=== PATIENT | female | born 1990 | race Caucasian/White ===

== ENCOUNTER → 2016-09-12 | Outpatient (CLI) | payer BC, OTHER ==
[~2016-09-12] MED LIST: PRENTAB26 PO
[2016-09-12 16:00] LABS: URINE APPEARANCE CLEAR (CLEAR); URINE BILIRUBIN NEG (NEG); URINE COLOR YELLOW; URINE NITRITE NEG (NEG); URINE PH 5.5 (4.5-7.5); URINE SPECIFIC GRAVITY 1.022 (1.000-1.030); UROBILINOGEN NEG (NEG)
[2016-09-12 16:02] LABS: MANUAL MICROSCOPIC REQUIRED? NO; REVIEW REQ? NO
== END | disposition home or self-care (01) ==
LOC: C.LABSPEC 17:34
PROVIDERS: ATTEND Obstetrics & Gynecology
DX: Z34.90 Encounter for supervision of normal pregnancy, unspecified, unspecified trimester (principal)

== ENCOUNTER → 2016-09-15 | Outpatient (CLI) | payer OTHER | END | disposition home or self-care (01) | LOC: C.PAPS 16:12 | PROVIDERS: ATTEND Obstetrics & Gynecology | DX: Z12.4 Encounter for screening for malignant neoplasm of cervix (principal) ==

== ENCOUNTER → 2016-09-15 | Outpatient (CLI) | payer OTHER ==
[2016-09-15 16:41] LABS: BASO % 0.3 %; BASO ABS # 0.03 K/uL (0-0.2); COMPLETE YES; EOS % 1.1 %; HEMATOCRIT 39.9 % (37-47); IG% 0.2 %; LYMPH % 23.8 %; LYMPH ABS # 2.69 K/uL (1.2-3.4); MEAN CELL VOLUME 91.1 fL (80-100); MEAN CORPUSCULAR HEMOGLOBIN 31.3 pg (25-34); MEAN CORPUSCULAR HGB CONC 34.3 g/dl (32-36); MEAN PLATELET VOLUME 10.2 fL (7.4-10.4); MONO % 7.4 %; NEUT % 67.2 %; PLATELET COUNT 277 K/uL (130-400); RED BLOOD COUNT 4.38 M/uL (4.2-5.4); WHITE BLOOD COUNT 11.28 K/uL (4.8-10.8)
[2016-09-18 03:20] LABS: CHLAMYDIA TRACH RNA*** NOT DETECTED (NOT DETECTED); GC (NEIS GONORRHOEAE)RNA** NOT DETECTED (NOT DETECTED)
== END | disposition home or self-care (01) ==
LOC: C.LAB1850 15:17
PROVIDERS: ATTEND Obstetrics & Gynecology
DX: Z34.90 Encounter for supervision of normal pregnancy, unspecified, unspecified trimester (principal)

== ENCOUNTER → 2017-01-29 | Outpatient (CLI) | payer OTHER ==
[2017-01-29 16:43] LABS: HEMATOCRIT 38.4 % (37-47)
[2017-01-29 18:58] LABS: URINE APPEARANCE CLEAR (CLEAR); URINE BILIRUBIN NEG (NEG); URINE COLOR YELLOW; URINE NITRITE NEG (NEG); URINE PH 6.5 (4.5-7.5); URINE SPECIFIC GRAVITY 1.014 (1.000-1.030); UROBILINOGEN NEG (NEG)
[2017-01-29 19:03] LABS: MANUAL MICROSCOPIC REQUIRED? NO; REVIEW REQ? NO
== END | disposition home or self-care (01) ==
LOC: C.LAB1850 15:27
PROVIDERS: ATTEND Obstetrics & Gynecology
DX: Z34.83 Encounter for supervision of other normal pregnancy, third trimester (principal)

== ENCOUNTER → 2017-04-03 | Outpatient (CLI) | payer BC | END | disposition home or self-care (01) | LOC: C.LABSPEC 15:42 | PROVIDERS: ATTEND Obstetrics & Gynecology | DX: O24.410 Gestational diabetes mellitus in pregnancy, diet controlled (principal); Z3A.00 Weeks of gestation of pregnancy not specified ==

== ENCOUNTER 2017-04-17 23:15 | Inpatient (IN) | payer BC ==
[~2017-04-17] VITALS: Ht 154.9 cm; Wt 73.5 kg
[2017-04-18] MEDS ORDERED: LACTATED RINGER'S 1000ML 1,000 ML IV PRN (00:14)
[2017-04-18] MEDS ORDERED: LACTATED RINGER'S 1000ML 1,000 ML IV SCH (00:14)
[2017-04-18 00:34] VITALS: Ht 154.9 cm; Wt 73.5 kg
[2017-04-18] MEDS ORDERED: ESOM20CA PO (00:40)
[2017-04-18 00:48] LABS: HEMATOCRIT 37.9 % (37-47); MEAN CELL VOLUME 89.6 fL (80-100); MEAN CORPUSCULAR HEMOGLOBIN 30.7 pg (25-34); MEAN CORPUSCULAR HGB CONC 34.3 g/dl (32-36); MEAN PLATELET VOLUME 10.3 fL (7.4-10.4); PLATELET COUNT 344 K/uL (130-400); RED BLOOD COUNT 4.23 M/uL (4.2-5.4); WHITE BLOOD COUNT 12.73 K/uL (4.8-10.8)
[2017-04-18] MEDS ORDERED: LACTATED RINGER'S 1000ML 500 ML IV PRN ×2 (04:10→08:51)
[2017-04-18] MEDS ORDERED: OXYTOCIN 30 UNITS/500ML NSS IV PRN ×2 (04:15→12:15)
[2017-04-18] MEDS ORDERED: BUPIVACAINE 0.25% 30 ML VIAL ONE (08:07)
[2017-04-18] MEDS ORDERED: EpHEDrine SULFATE INJ 50 MG/ML AMP ONE (08:07)
[2017-04-18] MEDS ORDERED: FENTANYL 2MCG/ML ROPIV 1.25MG/ML 100ML BAG EPI ONE (08:07)
[2017-04-18] MEDS ORDERED: FENTANYL CITRATE INJ 50 MCG/1 ML 2 ML VIAL ONE (08:08)
[2017-04-18] MEDS ORDERED: NALOXONE HCL INJ 1 MG in SODIUM CHLORIDE 0.9% 1000ML 1,000 ML IV PRN ×4 (08:51)
[2017-04-18] MEDS ORDERED: FENTANYL 2MCG/ML ROPIV 1.25MG/ML 100ML BAG EPI PRN (09:00)
[2017-04-18] MEDS ORDERED: PROMETHAZINE HCL INJ 25 MG in SODIUM CHLORIDE 0.9% 50ML 50 ML IV PRN (09:00)
[2017-04-18] MEDS ORDERED: DiphenhydrAMINE HCL 50 MG/ML VIAL IV PRN (09:00)
[2017-04-18] MEDS ORDERED: NALOXONE HCL INJ 0.4 MG/1 ML VIAL/CARP IV PRN (09:00)
[2017-04-18] MEDS ORDERED: NALBUPHINE HCL INJ 10 MG/ML AMP IV PRN (09:00)
[2017-04-18] MEDS ORDERED: EpHEDrine SULFATE INJ 50 MG/ML AMP IV PRN (09:00)
[2017-04-18] MEDS ORDERED: ONDANSETRON INJ 2 MG/ML 2 ML VIAL IV PRN (09:00)
[2017-04-18] MEDS ORDERED: DIPHTHERIA/TETANUS/PERTUSSIS 0.5 ML SYR/VIAL IM. ONE (12:15)
[2017-04-18] MEDS ORDERED: BENZOCAINE 20% AER SPR 82.5 GM CAN EXT PRN (12:15)
[2017-04-18] MEDS ORDERED: HYDROCORTISONE ACETATE 25 MG SUPP PR PRN (12:15)
[2017-04-18] MEDS ORDERED: SUPERCREAM 0.870 % 15GM JAR EXT PRN (12:15)
[2017-04-18] MEDS ORDERED: ACETAMINOPHEN/CODEINE 300/30MG TAB PO PRN ×2 (12:15)
[2017-04-18] MEDS ORDERED: LANOLIN OINT EXT PRN ×2 (12:15)
[2017-04-18] MEDS ORDERED: OXYCODONE/ACETAMINOPHEN 5-325 TAB PO PRN (12:15)
--- NOTE | 2017-04-18 12:39 | DELIVERY SUMMARY ---
DATE OF OPERATION: 04/18/2017 VAGINAL DELIVERY NOTE Beata presented in labor with ruptured membranes for Dr. Mckinney on the evening of April 17. At that time, she was on Pitocin and epidural. She rapidly progressed, fully dilated and pushed out a baby in left occiput anterior position. There was a tight nuchal cord. The fluid was clear. The cord was clamped and cut after delivery of the head on the perineum. Mouth and the nares were suctioned. The baby delivered with gentle traction. No excessive force. The baby initially required some resuscitation in the first one minute, but then quickly improved. There was no tearing. Estimated blood loss 100 mL. Placenta was removed with gentle traction. Uterus contracted and IV Pitocin started. Sponge and instrument counts correct. I attest to the content of the Intraoperative Record and any orders documented therein. Any exceptions are noted below. MTDD
--- NOTE | 2017-04-18 13:14 | Anesthesia Procedure Note ---
Anesthesia Epidural Removal Nt Date & Time Apr 18, 2017 at 13:13 Vital Signs Pain Intensity: 0.0 Notes Mental Status: alert / awake / arousable, participated in evaluation Nausea / Vomiting: adequately controlled Pain: adequately controlled Airway Patency, RR, SpO2: stable & adequate BP & HR: stable & adequate Hydration State: stable & adequate Neuraxial Anesthesia: was administered Anesthetic Complications: no major complications apparent, pt satisfied with anesthetic care Epidural: removed without complications, with tip intact
[2017-04-18 15:45] VITALS: BP 114/64; PULSE 89; TEMP 37.2
[2017-04-18] MEDS: IBUPROFEN 600 MG TAB PO PRN (17:16)
[2017-04-18] MEDS: DOCUSATE SODIUM 100 MG CAP PO SCH (20:04)
[2017-04-18] MEDS: ACETAMINOPHEN 325 MG TAB PO PRN (20:16)
[2017-04-18 20:25] VITALS: BP 106/68; PULSE 75; TEMP 36.6; O2SAT 99
[2017-04-19] MEDS: IBUPROFEN 600 MG TAB PO PRN ×3 (00:47→16:15)
[2017-04-19 00:50] VITALS: BP 104/64; PULSE 76; TEMP 36.4; O2SAT 98
[2017-04-19 04:15] VITALS: BP 100/65; PULSE 74; TEMP 36.8; O2SAT 99
[2017-04-19] MEDS: ACETAMINOPHEN 325 MG TAB PO PRN (04:25)
--- NOTE | 2017-04-19 06:36 | Progress Note ---
Subjective Apr 19, 2017. Subjective conversation w/ patient, physical exam, lab review Ambulation: ambulating normally Voiding: no voiding problems Passing Gas: Yes Diet Tolerance: Regular Diet Lochia: Moderate Feeding Type: Breast Feeding Objective Vital Signs Date Time Temp Pulse Resp B/P (MAP) Pulse Ox O2 Delivery O2 Flow Rate FiO2 04/19/17 04:15 36.8 74 20 100/65 (77) 99 Room Air 04/19/17 00:50 36.4 76 16 104/64 (77) 98 Room Air 04/19/17 00:50 98 Room Air 04/18/17 20:25 36.6 75 18 106/68 (81) 99 Room Air 04/18/17 15:45 37.2 89 20 114/64 (81) Room Air 04/18/17 15:45 Room Air Physical Exam General Appearance: WELL-APPEARING Respiratory/Chest: lungs clear Abdomen: non tender Fundus: Firm Extremities: non-tender, no calf tenderness Laboratory Results Last 24 Hours Test 04/19/17 06:27 Assessment and Plan Post- Day#: 1 Continue Routine Care: home
--- NOTE | 2017-04-19 06:37 | Discharge Instructions ---
Discharge Instructions Date of Service Apr 19, 2017. Admission Reason for Admission: LABOR Discharge Discharge Diagnosis / Problem: Discharge Goals Goal(s): Routine recovery after delivery Activity Recommendations Activity Limitations: per Instructions/Follow-up section . Instructions / Follow-Up Instructions / Follow-Up ACTIVITY RECOMMENDATIONS: * Gradual return to full activity over the next 2-3 weeks. * No lifting - nothing heavier than baby over the next 2-3 weeks. * Do not engage in vigorous exercise, sexual activity or sports until cleared by your physician. * Do not drive or operate any motorized equipment until cleared by your physician. * You may shower/bathe daily. MEDICATIONS: For discomfort or pain, you may use Acetaminophen (Tylenol), Ibuprofen (Advil), or Naproxen (Aleve) following the package directions. For constipation you may use Colace following the package directions. BREAST CARE: If you are not breast feeding: * Wear a supportive bra 24 hours a day for one to two weeks. * Avoid stimulating your breasts and nipples as much as possible during the first few weeks after delivery. * When taking a shower, have the warm water hit your back, not breasts. * When your breasts feel full, apply ice packs. Usually three to four times a day helps ease the discomfort. * Take a mild pain medication (Tylenol / Motrin) when you are uncomfortable. If breast feeding: * Use breast milk to lubricate nipples. Lansinoh cream may be used for sore nipples. You do not need to remove cream prior to breast feeding. If using a different brand of cream, check the label for directions regarding removal of cream prior to nursing. * Wear a supportive bra. * If having problems with breasts or breast feeding, call a sap treasury consultant or your health care provider. EPISIOTOMY CARE: After delivery, if you have an episiotomy (stitches), the following steps will ease discomfort and aid healing. * For the first 24 hours after delivery, place ice packs next to your episiotomy to help reduce swelling. * After the first 24 hour-period, sitz baths, either portable or in the tub, are suggested. A shower with a shower arm sprayed over the episiotomy may be comforting. * Monika care should be done after each voiding and bowel movement. Squirt warm water from a plastic bottle over the perineum (region of the body between the anus and urinary opening) and pat dry. * Use Dermoplast to ease discomfort. Shake container. Orchard directly over the episiotomy. Place a Tucks on a clean sanitary pad next to your episiotomy. SPECIAL CARE INSTRUCTIONS: When you are discharged from the hospital, it is important for you to follow the instructions listed below: * During the first week at home, you should be able to care for yourself and your baby. In addition, the usual light household activities are encouraged. * Limit your activities to the way you feel. Do not try to clean the house or move furniture. Be sensible. * If you actively engage in sports and have done so up until the time of your delivery, you may resume these activities as soon as you feel able. This may take up to one month or even longer. Use good judgment. * Continue to take your vitamins for at least six weeks after the of your baby. * Your diet need not be limited unless you were on a special diet before your delivery. Breast-feeding mothers need around 2500 calories per day and at least 64-80 ounces of fluid per day (8 to 10 glasses). * You should eat foods from the four major food groups. Crash diets or fad diets are to be avoided. Eating lean meats, fresh fruits and vegetables, low-fat dairy products, high fiber foods and a regular exercise program, will help you get back to your pre- weight without putting your health at risk. * Constipation is sometimes a problem after delivery. Take a mild laxative as needed. If breast feeding, Milk of Magnesia is acceptable to use. You may use a suppository or Fleets enema if no episiotomy. * A daily shower or tub bath is suggested. Be sure to thoroughly and gently dry the perineum. * A bloody vaginal discharge will usually continue until around four weeks post . A small amount of bleeding may continue for as long as six weeks. Vaginal discharge changes from the bright red bleeding after delivery to pink then brownish and finally yellowish-pink before becoming white and disappearing. * Bleeding may increase with activity. Your first period may come in 4-8 weeks. If you are breast feeding, your period may be delayed even longer. * [place] (sex) can begin whenever both you and your partner feel comfortable and do not have any form of genital infection. It is recommended that you wait at least six weeks for internal and external healing to occur. If you have questions, please talk to your health care practitioner. A condom should be used to prevent infection and . * Foreplay, gentle intercourse and lubrication is very important the first several times to prevent pain. A water-based lubricant such as K-Y jelly or Astroglide may be used. * If you have RH negative blood and your baby is RH positive, you will receive RHOGAM by injection prior to discharge. The nurse will give you a card to keep with you that has the date and place that you received RHOGAM after delivery. * During your care, you had a Rubella screen done to check for the presence of rubella antibodies in your blood. If your test was negative, you will receive a Rubella vaccine prior to discharge. This vaccine may cause a fever, soreness at the injection site and flu-like symptoms. If these symptoms persist, notify your health care practitioner. is not advised for one month after a Rubella vaccine. * Verbalizes understanding of car seat law as reviewed with patient nursing. * Car Seat hand-out given and reviewed with patient by nursing. * Shaken baby information reviewed with patient by nursing. Call you doctor if: * Heavy bleeding (saturating several pads an hour) or passing clots the size of your fist. * A fever >101 degrees F (38.3 degrees C) on two occasions four hours apart and /or chills. * Unusual pain in the pelvic or vaginal areas. * "Baby Blues" lasting longer than two weeks. If you have any questions or concerns, call your health care practitioner at . FOLLOW UP VISIT: * Please call the office at to schedule a 6 week examination. It is important you keep this appointment. It is important for you to make arrangements for either yearly or twice yearly check-ups thereafter. Current Hospital Diet Patient's current hospital diet: Regular OB Diet Discharge Diet Recommended Diet: Regular OB Diet Pending Studies Studies pending at discharge: no Medical Emergencies . Who to Call and When: Medical Emergencies: If at any time you feel your situation is an emergency, please call 911 immediately. . Non-Emergent Contact Non-Emergency issues call your: Digital Media Sales Consultant . . "Provider Documentation" section prepared by Lj Calderon. . VTE Core Measure Inpt VTE Proph given/why not?: Treatment not indicated
[2017-04-19 06:52] LABS: HEMATOCRIT 36.5 % (37-47)
[2017-04-19 08:00] VITALS: BP 110/77; PULSE 89; TEMP 36.7; O2SAT 99
[2017-04-19] MEDS ORDERED: PRENATAL VITAMIN TAB PO SCH (08:00)
[2017-04-19] MEDS: DOCUSATE SODIUM 100 MG CAP PO SCH (08:20)
[2017-04-19 16:50] VITALS: BP 127/73; PULSE 89; TEMP 36.6; O2SAT 98
[2017-04-19 17:30] VITALS: BP_DIAS 73; PULSE 89; TEMP 36.6
[2017-04-19] MEDS ORDERED: BISACODYL 5 MG TABEC PO SCH (20:00)
[2017-04-20] MEDS ORDERED: BISACODYL 10 MG SUPP PR PRN (07:00)
== END 2017-04-19 18:05 | disposition home or self-care (01) | DRG 775 ==
LOC: C.OPB 23:15 → C.LD 23:15 → C.OPB 04-18 00:15 → C.LD 04-18 00:15 → C.OBG 04-18 15:56
PROVIDERS: ADMIT Obstetrics & Gynecology; ATTEND Obstetrics & Gynecology
PROC: 10E0XZZ Delivery of Products of Conception, External Approach (ICD-10-PCS; principal; 2017-04-18)
DX: O24.420 Gestational diabetes mellitus in childbirth, diet controlled (principal); O69.1XX0 Labor and delivery complicated by cord around neck, with compression, not applicable or unspecified; Z37.0 Single live birth; Z3A.40 40 weeks gestation of pregnancy

== ENCOUNTER 2020-01-09 06:32 | Inpatient (IN) ==
[~2020-01-09 06:32] MED LIST changes: +CEFAZOLIN 2,000 MG in SYRINGE 0 ML IV SCH; +CITRIC ACID/SODIUM CITRATE 15 ML UDC PO SCH; +LACTATED RINGER'S 1,000 ML IV SCH; -PRENTAB26 PO
[2020-01-09] MEDS ORDERED: OXYTOCIN 30 UNITS/500 ML BAG IV PRN ×3 (07:55→21:44)
[2020-01-09 08:12] LABS: Hemoglobin 13.4 g/dL (12.0-16.0); White Blood Count 15.24 K/uL (4.8-10.8)
[2020-01-09 08:13] LABS: Hematocrit (blood only) 41.7 % (37-47); Mean Corpuscular Hemoglobin 30.5 pg (25-34); Mean Corpuscular Volume 94.8 fL (80-100); Mean Platelet Volume 10.7 fL (7.4-10.4); Platelet Count 369 K/uL (130-400); RDW Coefficient of Variation 13.3 % (11.5-14.5); RDW Standard Deviation 45.8 fL (36.4-46.3)
[2020-01-09 08:18] LABS: Mean Corpuscular Hgb Conc 32.1 g/dL (32-36)
[2020-01-09] MEDS: LACTATED RINGER'S 1,000 ML IV PRN ×2 (08:33→17:37)
--- NOTE | 2020-01-09 11:45 | History & Physical Report ---
Date of Service January 09, 2020 History of Present Illness Primary Care Provider: Meka Fleming MD Beata is a 29 y/o female ; dating parameters LMP 04/08/19; Came in for c- section due to breech presentation, which converted to vertex and was thus switched to induction; no complications during this . no contractions; good movement; no fluid loss; no vaginal blood loss Labs: (01/09/20) Blood type: O positive Antibody screen: Negative H.4 Hct: 41.7 WBC: 15.24 Plt: 369 Rubella: Immune VDRL/RPR: Neg Gonorrhea: Neg Chlamydia: Neg HIV: Neg HbSAg: Neg GBS Neg Allergies Allergy/AdvReac Type Severity Reaction Status Date / Time Penicillins Allergy Intermediate HIVES Verified 01/09/20 11:05 Home Medications Home Medications Medication Instructions Recorded Confirmed Type prenat.vits,mary,hph-kvis-gizku 1 tab PO DAILY 06/09/19 01/09/20 History esomeprazole magnesium [Nexium 20 mg PO QAM 01/04/20 01/09/20 History 24HR] Patient History Family History (Updated 08/04/19 @ 14:04 by Meka Fleming MD) Mother Migraine Sister Migraine Father Hypertension Depression Daughter No problems noted. Son No problems noted. Denies family history of Colon cancer Ovarian cancer Prostate cancer Myocardial infarction Breast cancer Social History Preferred Language: Kyrgyz Communication Ability: Effective Visual Impairment: No Limitations Hearing Ability: Normal Spot Sprayer Required: No Beliefs That Will Affect Care: None marital status: marital status details: Andrés (31) [phone] Current Living Situation: Spouse and Family current occupational status: employed current occupation: Dental pediatric medical assistant Other Information That Helps Us Care for You: No Feels Safe at Home: Yes Safety Concerns: Feels Safe At This Time Smoking Status: Never smoker Do You Dip or Chew Tobacco: No ; Second Hand Exposure: No ; Tobacco Cessation Education Requested by Patient: No Hx Alcohol Use: No Hx Substance Use: No Dental Care, Regularly: Yes Physical Activity Frequency: 3-4 Times per Week Review of Systems Constitutional: denies fever, chills, sweat, headache Respiratory: denies shortness of breath, difficulty breathing Cardiac: denies chest pain, palpitations, chest pressure Breast: denies breast pain : denies dysuria Physical Exam Respiratory: normal respiratory effort, lungs clear to auscultation Cardiovascular: RRR, no murmur, no edema Genitourinary: OB Exam Abdomen: + fundal height, + vertex and + estimated weight OB Exam Monitor Tracing: + external FHT monitor used, + external uterine monitor used, + category I and + normal FHT variability Results & Data Vital Signs (Past 12 Hours) Vital Signs Temp Pulse Resp BP 01/09/20 10:46 36.7 C 79 18 112/65 01/09/20 09:43 91 H 110/62 01/09/20 08:54 88 16 112/69 01/09/20 07:08 37.1 C 16 01/09/20 06:49 36.8 C 91 H 18 120/72
[2020-01-09] MEDS ORDERED: ePHEDrine sulfate 50 MG/ML AMP ONE (12:25)
[2020-01-09] MEDS ORDERED: fentaNYL citrate 100 MCG/2 ML VIAL ONE ×2 (12:25→21:14)
[2020-01-09] MEDS ORDERED: fentaNYL 2MCG/ML ROPIV 1.25MG/ML 100 ML BAG EPI ONE (12:25)
[2020-01-09] MEDS ORDERED: BUPIVACAINE 0.25% 30 ML VIAL ONE ×2 (12:25→21:14)
[2020-01-09] MEDS ORDERED: ONDANSETRON INJ 2 MG/ML 2 ML VIAL IV PRN (13:09)
[2020-01-09] MEDS ORDERED: DiphenhydrAMINE HCL 50 MG/ML VIAL IV PRN (13:09)
[2020-01-09] MEDS ORDERED: NALOXONE HCL 1 MG in SODIUM CHLORIDE 0.9% 1000ML 1,000 ML IV PRN (13:09)
[2020-01-09] MEDS ORDERED: ePHEDrine sulfate 50 MG/ML AMP IV PRN (13:09)
[2020-01-09] MEDS ORDERED: fentaNYL 2MCG/ML ROPIV 1.25MG/ML 100 ML BAG EPI PRN (13:09)
[2020-01-09] MEDS ORDERED: NALOXONE HCL 0.4 MG/1 ML VIAL/CARP IV PRN (13:09)
--- NOTE | 2020-01-09 13:15 | Anesthesiology Consultation ---
Date of Service January 09, 2020 Assessment & Plan Chart Review Chart Review: Patient NOT seen in Pre Admission Testing and Acceptable Risk for Labor Epidural Consults Requested none ASA ASA2 Proposed Anesthesia Anesthesia Type: Labor Epidural and CSE Risk / Benefits Reviewed With: PT / POA / Parent / Guardian, Accepts Plan and Informed Consent Obtained History Surgery Operation Date: 01/09/20 08:50 Proposed Procedures p Section in LD with - Brooke Nuno MD s Bilateral Tubal Ligation Labor & Delivery - Brooke Nuno MD Height/Weight Height: 5 ft 1 in Weight: 70.76 kg Allergies Allergy/AdvReac Type Severity Reaction Status Date / Time Penicillins Allergy Intermediate HIVES Verified 01/09/20 11:05 Medications Home Medications Medication Instructions Recorded Confirmed Last Taken prenat.vits,mary,ble-vsxz-apeel 1 tab PO DAILY 06/09/19 01/09/20 01/08/20 esomeprazole magnesium [Nexium 20 mg PO QAM 01/04/20 01/09/20 01/08/20 24HR] Active Medications Generic Name Dose Route Start Last Admin Trade Name Freq PRN Reason Stop Dose Admin Lactated Ringer's 1,000 mls @ 125 mls/hr 01/09/20 07:55 01/09/20 12:20 Lr IV 01/11/20 07:54 999 mls/hr .Q8H PRN Infusion L&D Protocol Protocol Oxytocin 30 units in 500 mls @ 9 mls/hr 01/09/20 07:59 01/09/20 12:20 Pitocin IV 01/11/20 07:58 0.54 units/hr .Q24H PRN 9 mls/hr Labor Induction/Augmentation Titration Protocol 0.54 UNITS/HR NPO Date Last Intake of Fluids: 01/09/20 Time Last Intake of Fluids: 11:30 Date Last Intake of Solids: 01/09/20 Time Last Intake of Solids: 11:30 Past Medical History Medical History Chiari I malformation GERD (gastroesophageal reflux disease) Gestational diabetes mellitus (GDM) affecting Migraine Transverse lie of fetus Exercise / Class Metabolic Activity II 4-5 Yardwork/Stairs/Walk up hill Past Family History Family History Mother Migraine Sister Migraine Father Hypertension Depression Daughter No problems noted. Son No problems noted. Denies family history of Colon cancer Ovarian cancer Prostate cancer Myocardial infarction Breast cancer Past Surgical History Surgical History Family history of reaction to anesthesia MOTHER-N/V History of dilatation and curettage Nausea and vomiting after administration of anesthetic agent [place] teeth removed Past Anesthesia History No Hx of Anesthesia Complications and No Family Hx of Anesthesia Complications History of PONV No Hx of PONV and No Hx of Motion Sickness Social History Smoking Status: Never smoker Do You Dip or Chew Tobacco: No Hx Alcohol Use: No Hx Substance Use: No substance use type: does not use Review of Systems no chest pain or sob Physical Exam Vital Signs Last Vital Signs Temp 36.7 C 01/09/20 10:46 Pulse 99 H 01/09/20 13:12 Resp 18 01/09/20 10:46 BP 129/76 01/09/20 13:12 Pulse Ox 100 01/09/20 13:11 ENMT Mouth: no TMJ abnormality Thyromental Distance: > or= 3.5 Finger Breadths Mallampati Class: II Neck normal visual inspection Respiratory normal respiratory effort Auscultation: lungs clear to auscultation bilaterally Cardiovascular Rate/Rhythm: regular rate and regular rhythm Musculoskeletal Spine: normal cervical ROM Neurologic moves all extremities Psychiatric Orientation: alert and oriented x 3 Testing Laboratory Results 01/09/20 08:00 Blood Type O Positive 01/09/20 08:00 Antibody Screen NEGATIVE 01/09/20 08:00
--- NOTE | 2020-01-09 18:29 | Labor Progress Brief Note ---
Date of Service January 09, 2020 Subjective Delayed note entry due to care of other patient. This patient examined earlier and was comfortable with epidural. Assessment & Plan (1) Encounter for supervision of normal in multigravida, antepartum: Unstable lie of fetus at 39 weeks - planned for CS today but vertex on presentation to L&D so converted to IOL. Pitocin all morning, head well applied so AROM done now, copious fluid drained and decel noted. recovery occurred and can go back up on pitocin. Admission and Anticipated Discharge Date Admission Date: January 09, 2020 Physical Exam Physical Exam: AROM copious clear fluid. /-2 FHT Cat 1 prior to AROM, but with decel noted after fluid drained. Pit turned from 15 to off, patient repositioned, FHT recovered. Results & Data ([facility]) Vital Signs (Past 12 Hours) Vital Signs Temp Pulse Resp BP Pulse Ox 01/09/20 18:22 80 99 01/09/20 18:21 84 89 L 01/09/20 18:17 67 100 01/09/20 18:12 85 99 01/09/20 18:07 64 100 01/09/20 18:06 75 107/62 01/09/20 18:02 66 98 01/09/20 18:00 16 01/09/20 17:57 79 99 01/09/20 17:52 66 99 01/09/20 17:50 72 115/60 01/09/20 17:47 68 99 01/09/20 17:42 84 99 01/09/20 17:37 94 H 95 01/09/20 17:32 70 99 01/09/20 17:28 79 93 01/09/20 17:27 73 95 01/09/20 17:22 80 98 01/09/20 17:20 71 101/59 L 01/09/20 17:17 76 98 01/09/20 17:12 75 98 01/09/20 17:07 81 98 01/09/20 17:06 77 111/70 01/09/20 17:02 79 98 01/09/20 17:00 97.9 F 16 01/09/20 16:57 82 115/64 100 01/09/20 16:52 78 99 01/09/20 16:47 81 98 01/09/20 16:42 94 H 98 01/09/20 16:37 86 97 07/13/20 16:32 87 98 01/09/20 16:27 93 H 98 01/09/20 16:22 86 98 01/09/20 16:21 80 105/66 01/09/20 16:17 80 98 01/09/20 16:12 96 H 96 01/09/20 16:07 86 96 01/09/20 16:05 86 107/58 L 93 01/09/20 16:02 88 98 01/09/20 16:00 98.4 F 16 01/09/20 15:57 77 97 01/09/20 15:52 85 98 01/09/20 15:51 80 105/59 L 01/09/20 15:47 76 98 01/09/20 15:42 81 95 01/09/20 15:37 84 97 01/09/20 15:35 83 110/65 01/09/20 15:32 85 96 01/09/20 15:30 16 01/09/20 15:27 76 97 01/09/20 15:22 83 98 01/09/20 15:21 80 108/66 01/09/20 15:16 74 96 01/09/20 15:11 86 97 01/09/20 15:06 85 110/65 97 01/09/20 15:01 91 H 99 01/09/20 15:00 16 01/09/20 14:56 94 H 98 01/09/20 14:51 85 98 01/09/20 14:50 87 103/58 L 01/09/20 14:46 84 98 01/09/20 14:41 85 98 01/09/20 14:36 91 H 97 01/09/20 14:31 78 97 01/09/20 14:30 80 110/58 L 01/09/20 14:26 96 H 98 01/09/20 14:21 82 99 01/09/20 14:20 82 109/57 L 01/09/20 14:16 86 98 01/09/20 14:11 91 H 117/59 L 97 01/09/20 14:06 84 98 01/09/20 14:01 81 115/67 98 01/09/20 14:00 98.8 F 18 01/09/20 13:56 81 98 01/09/20 13:51 81 109/60 98 01/09/20 13:46 98 H 98 01/09/20 13:41 102 H 98 01/09/20 13:40 105 H 126/58 L 01/09/20 13:36 89 99 01/09/20 13:34 93 H 105/59 L 01/09/20 13:32 87 111/59 L 01/09/20 13:31 90 114/54 L 99 01/09/20 13:28 85 118/58 L 01/09/20 13:27 93 H 112/60 01/09/20 13:26 97 H 100 01/09/20 13:22 109 H 18 139/68 01/09/20 13:21 118 H 142/67 H 100 01/09/20 13:16 124 H 100 01/09/20 13:12 99 H 129/76 01/09/20 13:11 101 H 100 01/09/20 10:46 98.1 F 79 18 112/65 01/09/20 09:43 91 H 110/62 01/09/20 08:54 88 16 112/69 01/09/20 07:08 98.8 F 16 01/09/20 06:49 98.2 F 91 H 18 120/72 Coding Level of Care Code None Diagnoses Encounter for supervision of normal in multigravida, antepartum Z34.80
[2020-01-09] MEDS ORDERED: Nursing to Pharmacy Communication SCH (20:30)
--- NOTE | 2020-01-09 21:38 | Delivery Summary ---
Vaginal Delivery Summary Date of Service January 09, 2020 Vaginal Delivery Summary DIAGNOSES: 1. Toribio intrauterine at 39w3d gestation. 2. Induction of Labor for unstable lie. 3. Group B Streptococcus Neg. PROCEDURE: Spontaneous vaginal delivery without laceration. SURGEON: Brooke Nuno MD. BINDERY LEADPERSON: None. ESTIMATED BLOOD LOSS: 250 mL. COMPLICATIONS: None. PLACENTA: Spontaneous and intact with a 3-vessel cord. DISPOSITION: Stable to labor and delivery. DESCRIPTION: The patient pushed well and brought the head to in OA position. The infant's head was allowed to deliver with contraction force and no further active pushing, with the perineum protected during this time. The shoulders delivered easily with a maternal pushing effort. There was no nuchal cord. The shoulders and body delivered without any difficulty, and the infant was placed on the maternal abdomen. It was vigorous and moving all extremities, and making respiratory efforts. The cord was doubly clamped by the MD and then cut by the FOB. The placenta delivered spontaneously and was noted to be intact and with a 3VC. The cervix, vagina and perineum were examined and were found to be without defect requiring repair. The fundus was firm and lochia minimal immediately after delivery.
[2020-01-09] MEDS ORDERED: BENZOCAINE 20% AER SPR 82.5 GM CAN EXT PRN (21:44)
[2020-01-09] MEDS ORDERED: HYDROCORTISONE ACETATE 25 MG SUPP PR PRN (21:44)
[2020-01-09] MEDS ORDERED: ACETAMINOPHEN 325 MG TAB PO PRN (21:44)
[2020-01-09] MEDS ORDERED: DIPHTHERIA/TETANUS/PERTUSSIS 0.5 ML SYR/VIAL IM ONE (21:44)
[2020-01-09] MEDS ORDERED: SUPERCREAM 0.870% 15 GM JAR EXT PRN (21:44)
[2020-01-09] MEDS: IBUPROFEN 600 MG TAB PO PRN (23:10)
--- NOTE | 2020-01-09 23:27 | Anesthesia Procedure Note ---
Date of Service January 09, 2020 Anesthesia Post Epidural Note Vital Signs Vital Signs: Temp Pulse Resp BP Pulse Ox 37.0 C 77 20 109/59 L 98 01/09/20 21:50 01/09/20 23:20 01/09/20 23:20 01/09/20 23:20 01/09/20 21:32 Pain Intensity Bilateral Abdomen: Pain Intensity: 0 Notes Mental Status: alert / awake / arousable and participated in evaluation Nausea / Vomiting: adequately controlled Pain: adequately controlled Airway Patency, RR, SpO2: stable & adequate BP & HR: stable & adequate Hydration State: stable & adequate Neuraxial Anesthesia: was administered and sensory block is resolving Anesthetic Complications: no major complications apparent and Pt Satisfied with anesthetic care Epidural: Removed without complications and With tip intact
[2020-01-10] MEDS: IBUPROFEN 600 MG TAB PO PRN ×3 (04:40→16:34)
[2020-01-10 06:05] LABS: Hematocrit (blood only) 35.8 % (37-47); Mean Corpuscular Hemoglobin 31.3 pg (25-34); Mean Corpuscular Hgb Conc 33.5 g/dL (32-36); Mean Corpuscular Volume 93.5 fL (80-100); Mean Platelet Volume 10.6 fL (7.4-10.4); Platelet Count 321 K/uL (130-400); RDW Coefficient of Variation 13.4 % (11.5-14.5); RDW Standard Deviation 45.2 fL (36.4-46.3); Red Blood Count 3.83 M/uL (4.2-5.4); White Blood Count 15.67 K/uL (4.8-10.8)
--- NOTE | 2020-01-10 06:17 | Obstetrical Progress Note ---
Date of Service <Enrique Henao MD - Last Filed: 01/10/20 06:17> January 10, 2020 Assessment & Plan <Enrique Henao MD - Last Filed: 01/10/20 06:17> (1) Encounter for supervision of normal in multigravida, antepartum: PPD#1 Doing well, ambulating well, voiding well, tolerating oral intake. Continue routine care. After discharge will have follow-up in 6 weeks. Subjective <Enrique Henao MD - Last Filed: 01/10/20 06:17> Beata is a 29 y/o female ; PPD#1 following spontaneous vaginal delivery at 39 weeks; doing well this morning; 3/10 pain managed with analgesics; voiding well; tolerating meals overnight and able to ambulate some; some persistent spotting with improvement this morning. Review of Systems Constitutional: denies fever, chills, sweat, headache Respiratory: denies shortness of breath, difficulty breathing Cardiac: denies chest pain, palpitations, chest pressure Breast: denies breast pain : denies dysuria Physical Exam <Enrique Henao MD - Last Filed: 01/10/20 06:17> General: Alert, oriented. No acute distress. Cardiac: Regular rate and rhythm, no murmurs/rubs/gallops. Respiratory: Clear to auscultation bilaterally a/p, no wheezes/rales/rhonchi. No increased work of breathing. Symmetrical chest rise. No respiratory distress. Abdomen: Soft, nontender, nondistended. Bowel sounds present. Uterus: Uterine fundus firm, palpable 1cm below umbilicus. Lower Extremities: No lower extremity edema or swelling. No deep calf pain. Urban's negative bilaterally. Results & Data <Enrique Henao MD - Last Filed: 01/10/20 06:17> Vital Signs (Past 12 Hours) Vital Signs Temp Pulse Resp BP Pulse Ox 01/10/20 04:30 36.8 C 58 L 20 95/55 L 01/10/20 00:10 37.0 C 76 18 112/71 01/09/20 23:35 72 20 104/55 L 01/09/20 23:20 77 20 109/59 L 01/09/20 23:07 77 109/59 L 01/09/20 22:50 67 106/59 L 01/09/20 22:35 81 18 108/62 01/09/20 22:20 81 20 104/58 L 01/09/20 22:08 81 104/58 L 01/09/20 22:05 81 20 104/58 L 01/09/20 21:50 37.0 C 66 20 107/54 L 01/09/20 21:36 61 109/55 L 01/09/20 21:35 66 20 107/54 L 01/09/20 21:32 86 98 01/09/20 21:31 131 H 88 L 01/09/20 21:30 20 01/09/20 21:27 119 H 100 01/09/20 21:26 110 H 76 L 01/09/20 21:22 99 H 99 01/09/20 21:20 95 H 20 104/56 L 01/09/20 21:17 123 H 99 01/09/20 21:12 80 99 01/09/20 21:07 100 H 99 01/09/20 21:06 94 H 103/59 L 01/09/20 21:05 91 H 92 01/09/20 21:02 90 97 01/09/20 20:58 36.9 C 20 01/09/20 20:57 78 99 01/09/20 20:52 88 98 01/09/20 20:51 92 H 130/79 01/09/20 20:47 82 100 01/09/20 20:42 90 98 01/09/20 20:37 100 H 98 01/09/20 20:36 81 140/66 01/09/20 20:35 74 93 01/09/20 20:32 88 98 01/09/20 20:30 20 01/09/20 20:27 71 98 01/09/20 20:23 88 90 01/09/20 20:22 84 98 01/09/20 20:20 96 H 113/61 01/09/20 20:17 88 98 01/09/20 20:12 92 H 99 01/09/20 20:07 80 99 01/09/20 20:05 82 116/64 01/09/20 20:02 84 98 01/09/20 20:00 20 01/09/20 19:57 73 98 01/09/20 19:52 76 99 01/09/20 19:50 85 111/65 01/09/20 19:47 69 98 01/09/20 19:42 80 99 01/09/20 19:37 76 115/64 99 01/09/20 19:32 70 97 01/09/20 19:30 20 01/09/20 19:27 75 98 01/09/20 19:22 89 99 01/09/20 19:21 89 109/63 01/09/20 19:20 83 90 01/09/20 19:17 76 98 01/09/20 19:12 74 99 01/09/20 19:09 91 H 135/72 01/09/20 19:07 84 100 01/09/20 19:02 132 H 100 01/09/20 19:00 36.9 C 20 01/09/20 18:57 79 99 01/09/20 18:52 78 99 01/09/20 18:51 75 116/63 01/09/20 18:47 79 100 01/09/20 18:42 74 100 01/09/20 18:37 73 98 01/09/20 18:35 67 108/58 L 01/09/20 18:32 74 100 01/09/20 18:27 77 100 01/09/20 18:22 80 99 01/09/20 18:21 84 89 L 01/09/20 18:17 67 100 <Brooke Nuno MD - Last Filed: 01/10/20 07:12> Co-Signing Physician Notes I have reviewed the resident's note and examined the patient myself, and agree with the note above.
[2020-01-10] MEDS: PANTOprazole 40 MG TAB PO SCH (08:50)
[2020-01-10] MEDS: PRENATAL VITAMIN 1 TAB PO SCH (08:50)
[2020-01-10] MEDS: DOCUSATE SODIUM 100 MG CAP PO SCH ×2 (08:50→21:29)
[2020-01-11] MEDS: IBUPROFEN 600 MG TAB PO PRN ×2 (01:37→09:13)
--- NOTE | 2020-01-11 07:16 | Obstetrical Progress Note ---
Date of Service <Enrique Henao MD - Last Filed: 01/11/20 07:16> January 11, 2020 Assessment & Plan <Enrique Henao MD - Last Filed: 01/11/20 07:16> (1) Encounter for supervision of normal in multigravida, antepartum: PPD#2 Doing well, ambulating well, voiding well, tolerating oral intake. Continue routine care. Will be discharged today. After discharge will have follow-up in 6 weeks. Subjective <Enrique Henao MD - Last Filed: 01/11/20 07:16> Beata is a 29 y/o female ; PPD #2 following spontaneous vaginal delivery at 39 weeks; doing well this morning; no abdominal cramping/ no pain; voiding well; tolerating meals overnight and able to ambulate some; some light spotting with improvement this morning. Patient is ready to go home today. Review of Systems Constitutional: denies fever, chills, sweat, headache Respiratory: denies shortness of breath, difficulty breathing Cardiac: denies chest pain, palpitations, chest pressure Breast: denies breast pain : denies dysuria Physical Exam <Enrique Henao MD - Last Filed: 01/11/20 07:16> General: Alert, oriented. No acute distress. Cardiac: Regular rate and rhythm, no murmurs/rubs/gallops. Respiratory: Clear to auscultation bilaterally a/p, no wheezes/rales/rhonchi. No increased work of breathing. Symmetrical chest rise. No respiratory distress. Abdomen: Soft, nontender, nondistended. Bowel sounds present. Uterus: Uterine fundus firm, palpable 2cm below umbilicus. Lower Extremities: No lower extremity edema or swelling. No deep calf pain. Urban's negative bilaterally. Results & Data <Enrique Henao MD - Last Filed: 01/11/20 07:16> Vital Signs (Past 12 Hours) Vital Signs Temp Pulse Resp BP Pulse Ox 01/11/20 00:00 36.8 C 78 20 112/62 98 <Ruben Moore Jr, MD, FACOG - Last Filed: 01/11/20 07:51> Co-Signing Physician Notes Resident Physician Supervision Note: I was present with Dr. Springer during the history and exam. I discussed the case with the resident and agree with the findings and plan as documented in the note. Any exceptions or clarifications are listed here: Patient desires d/c, instructions given, f/u in 6 weeks Documented By: Ruben Moore Jr, MD, FACOG
[2020-01-11] MEDS: DOCUSATE SODIUM 100 MG CAP PO SCH (09:13)
[2020-01-11] MEDS: PRENATAL VITAMIN 1 TAB PO SCH (09:13)
[2020-01-11] MEDS: PANTOprazole 40 MG TAB PO SCH (09:14)
== END 2020-01-11 14:30 | disposition home or self-care (01) | DRG 807 ==
LOC: 4S1 06:32 → EDSTATUS 10:10 → 4S2 01-10 00:27